=== PATIENT | female | born 1980 | race Caucasian/White ===

== ENCOUNTER 2018-04-27 18:29 | Emergency (ER) | payer OTHER, BC ==
[2018-04-27 18:29] VITALS: BMI 40.2
[2018-04-27 18:59] VITALS: RESP 18
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
[2018-04-27 20:32] VITALS: BP 138/76; PULSE 79; O2SAT 98
[2018-04-28 03:48] VITALS: TEMP 79
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
== END 2018-04-27 21:21 | disposition home or self-care (01) ==
LOC: ED 18:29
DX: S39.012A Strain of muscle, fascia and tendon of lower back, initial encounter (principal); S80.00XA Contusion of unspecified knee, initial encounter; V73.6XXA Passenger on bus injured in collision with car, pick-up truck or van in traffic accident, initial encounter; Y92.410 Unspecified street and highway as the place of occurrence of the external cause